=== PATIENT | male | born 1950 | race Caucasian/White ===

== ENCOUNTER 2016-08-06 15:21 | Emergency (ER) | payer OTHER ==
[~2016-08-06] VITALS: Ht 175.3 cm; Wt 99.8 kg
--- NOTE | 2016-08-06 16:03 | ED GENERAL ADULT ---
History of Present Illness General Chief Complaint: Plantar Puncture Wound Stated Complaint: PUNCTURE WOUND R HEEL Source: patient Exam Limitations: no limitations Vital Signs & Intake/Output Vital Signs & Intake/Output Vital Signs Date Time Temp Pulse Resp B/P B/P Pulse O2 O2 Flow FiO2 Mean Ox Delivery Rate 08/06 1702 98.3 89 15 142/74 100 Room Air 08/06 1609 99 Room Air 08/06 1524 96.8 100 16 160/89 96 Room Air Allergies Coded Allergies: MDX - Penicillin (PENICILLIN) (HIVES 11/29/14) MDX - SULFA (sulfonamide) (SULFA (SULFONAMIDE)) (HIVES 11/29/14) Uncoded Allergies: Allergy Other N Med Allergies SULFA,PCN Reconcile Medications Ciprofloxacin HCl (Cipro) 500 MG TABLET 1 TAB PO BID PUNCTUTRE WOUND Triage Note: PT STEPPED ON NAIL RIGHT HEEL TODAY STATES HE IS NOT UTD WITH TETANUS Triage Nurses Notes Reviewed? yes Onset: Abrupt Duration: hour(s): Timing: recent history HPI: 08/06/16 5 PM 65-year-old man with puncture wound to the right foot. The patient states he was in his usual state of health until earlier today when he stepped on a nail that went through his shoe and punctured the heel of his right foot. He is unclear when he had his last tetanus shot he has no other complaints. The onset of symptoms was abrupt. The duration was just today. The severity is significant; as his symptoms required him to come to the emergency department for care. He has no associated complaints. Past History Travel History Traveled to [place] past 21 day No Medical History Any Pertinent Medical History? see below for history Cardiovascular: hypertension Surgical History Surgical History: cholecystectomy Psychosocial History What is your primary language Ken[place] Tobacco Use: Never used ETOH Use: occasional use Illicit Drug Use: denies illicit drug use Family History Hx Contributory? No Review of Systems Review of Systems Constitutional: Denies: fever. EENTM: Reports: no symptoms. Respiratory: Reports: no symptoms. Cardiovascular: Reports: no symptoms. GI: Reports: no symptoms. Genitourinary: Reports: no symptoms. Musculoskeletal: Reports: see HPI. Skin: Reports: see HPI. Neurological/Psychological: Reports: no symptoms. Hematologic/Endocrine: Reports: no symptoms, bleeding. Physical Exam Physical Exam General Appearance: well developed/nourished, alert, awake, mild distress Head: atraumatic, normal appearance Eyes: Bilateral: normal appearance, PERRL, EOMI. Ears, Nose, Throat: normal ENT inspection Neck: normal inspection, supple, full range of motion Respiratory: no respiratory distress Peripheral Pulses: 4+ dorsalis pedis (R) Back: normal range of motion Extremities: tenderness (PUNCTURE WOUND HEEL ON RIGHT) Neurologic/Psych: no motor/sensory deficits, awake, alert, oriented x 3 Skin: normal color, warm/dry, PUNCTURE WOUND TO THE HEEL OF THE RIGHT FOOT Core Measures ACS in differential dx? No CVA/TIA Diagnosis: No Severe Sepsis Present: No Septic Shock Present: No Progress Differential Diagnoses I considered the following diagnoses in my evaluation of the patient: [ Osteomyelitis, foreign body, tetanus] Plan of Care: Follow-up [facility] as directed. Initial ED EKG: none Departure Departure Disposition: STILL A PATIENT Condition: Stable Clinical Impression Primary Impression: Puncture wound Referrals: ISRAEL NEVES,CHANTELLE Keith (PCP/Family) Departure Forms: Customer Survey General Discharge Information Prescriptions: Current Visit Scripts Ciprofloxacin HCl (Cipro) 1 TAB PO BID #20 TAB Comments The puncture wound was irrigated vigorously with a Betadine scrub, saline and peroxide. The patient was put on Cipro. He was given a tetanus shot. He was told to rinse the area daily, Return to the emergency department should he have pain or fever. Critical Care Note Critical Care Note Critical Care Time: non-applicable
[2016-08-06] MEDS ORDERED: CIPRO500 M1 PO (16:55)
[2016-08-06 17:02] VITALS: BP 142/74
== END 2016-08-06 17:02 ==
LOC: ERH 15:21
DX: S91.331A Puncture wound without foreign body, right foot, initial encounter (principal); W45.0XXA Nail entering through skin, initial encounter; Y93.9 Activity, unspecified; Y92.9 Unspecified place or not applicable
CPT/HCPCS: 90471; 90714